=== PATIENT | female | born 1975 | race Caucasian/White ===

== ENCOUNTER 2019-07-07 19:15 | Emergency (ER) | payer OTHER, SELFPAY ==
[2019-07-07 19:15] VITALS: BP 107/73; PULSE 75; RESP 18; TEMP 36.6; O2SAT 96; BMI 25.1
[2019-07-07 19:31] LABS: Apearance,Urine Clear (Clear); Color,Urine Yellow (Yellow)
[2019-07-07 19:32] LABS: Bilirubin,Urine Negative (Negative); Blood, Urine 3+ (Negative); Glucose,Urine (UA) Negative (Negative); Ketones,Urine Negative (Negative); PH,Urine 5.5 (5.0-8.5); Protein,Urine 1+ (Negative); Specific Gravity, Urine 1.015 (1.005-1.030); UTC Leukocyte Esterase,Urine 2+ (Negative); UTC Nitrate,Urine Negative (Negative); Urobilinogen,Urine 0.2 EU/dl (0.2)
--- NOTE | 2019-07-07 19:37 | HMH.EDUTC ---
[facility] [place] Disposition Clinical Impression: UTI (urinary tract infection) Qualifiers: Urinary tract infection type: site unspecified Hematuria presence: with hematuria Qualified Code(s): N39.0 - Urinary tract infection, site not specified Disposition: Home, Self-Care Condition on Discharge: Good Instructions: Trimethoprim/Sulfamethoxazole (Alternative Therapy), Urinary Tract Infection, DI for Urinary Tract Infection (UTI), Phenazopyridine Additional Instructions: *Increase fluids. Water not Soda or Tea *Start antibiotic immediately and be sure to take as ordered for the FULL length of time although you should start to see improvement over the next 48 hours *Pyridium as needed Remember this medication will turn your urine [place]. This is normal but it will stain what ever it gets on *You should not use Pyridium for more than 48 hours. If so , follow up with your primary physician to review urine culture and ensure that antibiotic is adequate for infection *Be SURE to follow up anytime for new or worsening symptoms with your family doctor. AND in 48 hours for urine culture results with your family doctor, if you do not have a doctor then you may call back to the [facility] for urine culture results and further treatment. We do recommend that you choose and establish care with a Primary Care Physician. AND follow up with them in 10-14 days to repeat UA to ensure infection is resolved and blood no longer present *Be sure to let your PCP know that we sent urine cultures from the [facility] so they can follow up to ensure that you area the on the correct antibiotic Call your doctor office and make appointment for 48 hours (2 days from today) to follow up and get the results of your urine culture and further treatment Return if needed Straight to ER if any life threatening symptoms Prescriptions: Sulfamethoxazole/Trimethoprim [Bactrim DS tablet] 1 each PO BID 10 Days #20 tab Transmission Status: Received by [facility] Phenazopyridine HCl [Pyridium 200mg Tablet] 200 pow PO TID #6 tab Transmission Status: Received by [id number] Referrals: Provider,Referral, [Primary Care Provider] - As needed Time of Disposition: 19:53 Medical Decision Making - Tavo Inquiry Pt receiving controlled substance: No Tavo was queried for this patient: No Vital Signs: 07/07/19 19:15 Temperature 97.9 F Temperature Source Oral Pulse Rate [Radial] 75 Respiratory Rate 18 Blood Pressure [Right Arm] 107/73 L Blood Pressure Mean [Right Arm] 84 Blood Pressure Source [Right Arm] Automatic Cuff Blood Pressure Position [Right Arm] Sitting 02 Sat by Pulse Oximetry 96 Oxygen Delivery Method Room Air - Lab Data Lab results reviewed: Yes: I reviewed the patient's lab results. Lab Results 07/07/19 19:18: Urine Color Yellow, Urine Appearance Clear, Urine pH 5.5, Ur Specific [place] 1.015, Urine Protein 1+, Urine Glucose (UA) Negative, Urine Ketones Negative, Urine Blood 3+, Urine Nitrate Negative, Urine Bilirubin Negative, Urine Urobilinogen 0.2, Ur Leukocyte Esterase 2+ A Orders (Tests/Meds): ED MEDICATIONS Discontinued Medications Generic Name Dose Route Start Last Admin Trade Name Freq PRN Reason Stop Dose Admin Ceftriaxone Sodium 1 gm 07/07/19 19:37 07/07/19 19:50 Rocephin 1gm Vial IM 07/07/19 19:38 1 gm ONCE ONE Administration Protocol Lidocaine HCl 0 ml 07/07/19 19:37 07/07/19 19:50 Lidocaine 1% 10ml Mdv IM 07/07/19 19:38 2.1 ml ONCE ONE Administration ORDERS Category Date Time Status Urine Culture Stat Micro 07/07/19 19:30 Ordered [facility] [place] HPI - General Stated complaint: Possible UTI Time Seen by Provider: 07/07/19 19:37 Mode of Arrival: Ambulatory Source of Information: Patient Limitations: No Limitations Description of Symptoms (Recalled from Triage Doc. by RN): UTI or bladder infection HEENT Symptoms (Recalled from RN notes): No Resp Symptoms (Recalled from RN notes): No Skin Sympt
[2019-07-07 20:00] VITALS: BP 107/73; PULSE 75; RESP 18; TEMP 36.6; O2SAT 96
== END 2019-07-07 20:01 | disposition home or self-care (01) ==
PROVIDERS: Emergency Provider Nurse Practitioner
DX: N30.00 Acute cystitis without hematuria (principal); F17.210 Nicotine dependence, cigarettes, uncomplicated
CPT/HCPCS: 81003; 87086; 87088; 87186; 96372; 99202

== ENCOUNTER 2020-07-06 16:39 | Emergency (ER) | payer OTHER, SELFPAY ==
[2020-07-06 16:40] VITALS: BP 125/78; PULSE 72; RESP 18; TEMP 37.1; O2SAT 98; BMI 24.1
--- NOTE | 2020-07-06 16:56 | HMH.EDGENADL ---
ED Disposition Clinical Impression: Abdominal pain Qualifiers: Abdominal location: right lower quadrant Qualified Code(s): R10.31 - Right lower quadrant pain Ovarian cyst Qualifiers: Laterality: left Qualified Code(s): N83.202 - Unspecified ovarian cyst, left side Disposition: Home, Self-Care Condition on Discharge: Good Instructions: DI for Acute Abdominal Pain Referrals: Provider,Referral, MD [Primary Care Provider] - 3 days Time of Disposition: 19:13 - Critical Care Critical Care Time: No Attestation: On , the high probability of a clinically significant, sudden or life threatening deterioration of the following system(s) required my full and direct attention, intervention and personal management. The time I documented below is in addition to time spent performing reported procedures but includes the following listed in this critical care notation. Medical Decision Making - Medical Records Medical records reviewed: Yes: I reviewed the patient's medical records. - Tavo Inquiry Pt receiving controlled substance: No Vital Signs: 07/06/20 16:40 Temperature 98.8 F Temperature Source Oral Pulse Rate [Right] 72 Respiratory Rate 18 Blood Pressure [Right Arm] 125/78 Blood Pressure Mean [Right Arm] 93 02 Sat by Pulse Oximetry 98 Oxygen Delivery Method Room Air - Lab Data Lab results reviewed: Yes: I reviewed the patient's lab results. Lab Results 07/06/20 17:19: WBC 13.1 H, RBC 4.76, Hgb 14.3, Hct 44.1, MCV 92.6, MCH 30.0, MCHC 32.4, RDW 13.5, Plt Count 438 H, MPV 7.0 L, Neut % (Auto) 46.8, Lymph % (Auto) 44.1, Pratt % (Auto) 6.4, Eos % (Auto) 1.6, Baso % (Auto) 1.1, Neut # (Auto) 6.1, Lymph # (Auto) 5.8 H, Pratt # (Auto) 0.8, Eos # (Auto) 0.2, Baso # (Auto) 0.1 07/06/20 17:19: Sodium 136, Potassium 4.3, Chloride 102, Carbon Dioxide 25, Anion Gap 13.3, BUN 16, Creatinine 0.50 L, Estimated Creat Clear 133, Estimated GFR 135, Est GFR ( Amer) 163, Glucose 97, Calcium 9.7, Total Bilirubin 0.3, AST 48 H, ALT 18, Alkaline Phosphatase 100, Total Protein 7.9, Albumin 4.9, Globulin 3.0, Albumin/Globulin Ratio 1.6, Lipase 95 07/06/20 18:05: Urine Color Yellow, Urine Appearance Clear, Urine pH 5.5, Ur Specific [place] >= 1.030, Urine Protein Negative, Urine Glucose (UA) Negative, Urine Ketones Negative, Urine Blood Negative, Urine Nitrate Negative, Urine Bilirubin Negative, Urine Urobilinogen 0.2, Ur Leukocyte Esterase Negative, Urine RBC 5-10, Urine WBC 10-20, Ur Squamous Epith Cells 10-20, Urine Bacteria 1+, Urine Mucus 2+ 07/06/20 18:05: Urine HCG, Qual Negative Result diagrams: 07/06/20 17:19 07/06/20 17:19 Orders (Tests/Meds): ED MEDICATIONS Discontinued Medications Generic Name Dose Route Start Last Admin Trade Name Freq PRN Reason Stop Dose Admin Iopamidol 75 ml 07/06/20 18:42 07/06/20 18:43 Iopamidol-370 (76%);100ml Bottle IV 07/06/20 18:43 75 ml ONCE ONE Administration Ketorolac Tromethamine 15 mg 07/06/20 18:44 07/06/20 18:50 Ketorolac 30mg/Ml Vial IV 07/06/20 18:45 15 mg ONCE ONE Administration Sodium Chloride 10 ml 07/06/20 18:42 07/06/20 18:43 Sodium Chloride 0.9% 10ml Syr (Rad Only) IV 07/06/20 18:43 10 ml ONCE ONE Administration ORDERS Category Date Time Status Urine Culture Stat Micro 07/06/20 18:05 Received - CT Data CT Scan: Abdomen, Pelvis Time Received: 19:[address] Reviewed: Yes: I have viewed the radiologist's interpretation Preliminary Findings: Abnormal Findings Narrative: Left ovarian cyst Medical Decision Narrative: 44yo F evaluated for right lower quadrant pain. Differential diagnosis includes but not limited to: Acute appendicitis, gallbladder disease, constipation, irritable bowel, bowel obstruction, volvulus, intussusception, kidney stone, ovarian pathology, ectopic , aortic injury, SMA syndrome. Patient is in no acute distress as long she sitting still. Patient has significant pain with any movement. Labs and
--- NOTE | 2020-07-06 17:30 | CT_ITS ---
PROCEDURE INFORMATION: Exam: CT Abdomen And Pelvis With Contrast Exam date and time: 07/06/20 05:30 PM Age: 44 years old Clinical indication: Abdominal pain; Localized; Right lower quadrant (rlq); Patient HX: Rlq pain 2 days ago TECHNIQUE: Imaging protocol: Computed tomography of the abdomen and pelvis with contrast. Radiation optimization: All CT scans at this facility use at least one of these dose optimization techniques: automated exposure control; mA and/or kV adjustment per patient size (includes targeted exams where dose is matched to clinical indication); or iterative reconstruction. Contrast material: ISOVUE; Contrast volume: 75 ml; Contrast route: IV; COMPARISON: ABDPELW CT abdomen pelvis w con 01/23/18 11:35 PM FINDINGS: Tubes, catheters and devices: None noted. Lungs: Lung bases appear clear. Heart: No significant coronary calcifications. No cardiomegaly. No significant pericardial effusion. Liver: Normal. No mass. Gallbladder and bile ducts: Normal. No calcified stones. No ductal dilation. Pancreas: Normal. No ductal dilation. Spleen: Normal. No splenomegaly. Adrenal glands: Normal. No mass. Kidneys and ureters: Normal. No hydronephrosis. Stomach and bowel: Unremarkable. No obstruction. No mucosal thickening. Appendix: Appendix is well visualized. No evidence of appendicitis. Intraperitoneal space: Unremarkable. No free air. No significant fluid collection. Retroperitoneal space: No significant retroperitoneal inflammatory changes are noted. Vasculature: Unremarkable. No abdominal aortic aneurysm. Lymph nodes: Unremarkable. No enlarged lymph nodes. Urinary bladder: Unremarkable as visualized. Reproductive: Left ovarian cyst 3.1 x 2.7 cm. Bones/joints: Schmorl's node L5. No acute fracture. Soft tissues: Unremarkable. IMPRESSION: 1. Left ovarian cyst 3.[address] evidence of appendicitis.
[2020-07-06 17:31] LABS: Basophils # 0.1 K/mm3 (0-0.2); Basophils % 1.1 % (0.1-2.0); Eosinophils # 0.2 K/mm3 (0.0-0.4); Eosinophils % 1.6 % (0.1-12.0); Hematocrit 44.1 % (37.0-47.0); Hemoglobin 14.3 g/dL (12.2-16.2); Lymphocytes # 5.8 K/mm3 (0.7-4.5); Lymphocytes % 44.1 % (10-50); Mean Corpuscular HGB Conc 32.4 g/dL (31.8-35.4); Mean Corpuscular Volume 92.6 fl (81-99); Monocytes # 0.8 K/mm3 (0.1-1.0); Monocytes % 6.4 % (1.7-9.3); Neutrophils # 6.1 K/mm3 (1.8-7.8); Neutrophils % 46.8 % (37.0-80.0); Platelet Count 438 K/mm3 (142-424); Red Blood Count 4.76 M/mm3 (4.20-5.40); Red Cell Distribution Width 13.5 % (11.5-17.5); White Blood Count 13.1 K/mm3 (4.8-10.8)
[2020-07-06 17:45] LABS: Chloride 102 mmol/L (98-107); Sodium 136 mmol/L (136-145)
[2020-07-06 17:46] LABS: Potassium 4.3 mmoL/L (3.5-5.1)
[2020-07-06 17:48] LABS: Alanine Aminotransferase 18 U/L (12-78); Alkaline Phosphatase 100 U/L (38-126); Anion Gap 13.3 mEq/L (5-15); Aspartate Amino Transferase 48 U/L (14-36); Bilirubin,Total 0.3 mg/dl (0.2-1.3); Blood Urea Nitrogen 16 mg/dl (7-17); Carbon Dioxide 25 mmol/L (22.0-30.0); Creatinine Clearance Estimated 133 mL/min (50-200); Estimated Glomerular Filt Rate 135 ml/min (>60); GFR (African American) 163 ML/MIN (>60)
[2020-07-06 17:49] LABS: Albumin Level 4.9 g/dl (3.5-5.0); Albumin/Globulin Ratio 1.6 (1.1-1.8); Calcium 9.7 mg/dl (8.4-10.2); Glucose 97 mg/dl (74-100); Lipase 95 U/L (23-300); Total Protein,Serum 7.9 g/dl (6.3-8.2)
[2020-07-06 18:10] LABS: Microscopic, Urine URINE MICROSCOPIC (MICROSCOPIC)
[2020-07-06 18:12] LABS: Appearance,Urine CLEAR (Clear); Bilirubin,Urine Negative (Negative); Blood, Urine Negative (Negative); Color,Urine YELLOW (Yellow); Glucose,Urine (UA) Negative (Negative); Ketones,Urine Negative (Negative); Leukocyte Esterase,Urine Negative (Negative); Nitrate,Urine Negative (Negative); PH,Urine 5.5 (5.0-8.5); Protein,Urine Negative (Negative); Specific Gravity, Urine >= 1.030 (1.005-1.030); Urobilinogen,Urine 0.2 EU/dl (0.2)
[2020-07-06 18:14] LABS: Urine Pregnancy, HCG Qual. Negative (Negative)
[2020-07-06 18:24] LABS: Bacteria,Urine 1+ /lpf; Mucus,Urine 2+ /lpf
[2020-07-06 18:53] VITALS: BP 111/81; PULSE 63; O2SAT 100
[2020-07-06 19:26] VITALS: BP 108/73; PULSE 68; RESP 16; TEMP 36.6; O2SAT 99
== END 2020-07-06 19:27 | disposition home or self-care (01) ==
PROVIDERS: Emergency Provider Family Medicine
DX: N83.202 Unspecified ovarian cyst, left side (principal); F17.210 Nicotine dependence, cigarettes, uncomplicated
CPT/HCPCS: 74177; 80053; 81001; 81025; 83690; 85025; 87086; 87088; 87186; 96374; 99283; Q9967

== ENCOUNTER 2020-09-16 16:36 | Emergency (ER) | payer OTHER, SELFPAY ==
[2020-09-16 16:37] VITALS: RESP 16; O2SAT 100; BMI 24.5
--- NOTE | 2020-09-16 17:15 | HMH.EDUTC ---
[facility] [place] Clinical Impression: Sinusitis Disposition: Home, Self-Care Condition on Discharge: Good Instructions: Sinusitis, DI for Sinusitis Additional Instructions: *Monitor Temp, Over the counter Motrin or Tylenol as directed/as needed Tylenol every 4 hours and Motrin every 6 hours (as long as your family doctor has told you that you can take it) for fever or pain. and straight to ER if unable to lower temp less than 101.0 after medication given *Warm salt water gargles may help to soothe the throat *Throat Lozenges *Warm fluids like tea with honey may help to soothe the throat *Sleep elevated *Humidifier/Vaporizer Take antibiotics as prescribed Follow up IMMEDIATELY for new or worsening symptoms or no Noticeable improvement over the next 48-72 hours. 911 for difficulty breathing or swallowing Prescriptions: methylPREDNISolone [Medrol 4mg tab] 4 mg PO DIRECTED #21 tab Transmission Status: Pending to [facility] Azithromycin [Z-Jamey 250mg Tab] 250 mg PO DIRECTED #6 tab Transmission Status: Pending to [facility] Referrals: Isael Lipscomb MD [Primary Care Provider] - As needed Time of Disposition: 17:28 Medical Decision Making - Tavo Inquiry Pt receiving controlled substance: No Tavo was queried for this patient: No Vital Signs: 09/16/20 16:37 Respiratory Rate 16 02 Sat by Pulse Oximetry 100 Oxygen Delivery Method Room Air [facility] [place] - General Stated complaint: sinus drainage, pressure, sore throat Time Seen by Provider: 09/16/20 17:15 Mode of Arrival: Ambulatory Source of Information: Patient Limitations: No Limitations Description of Symptoms (Recalled from Triage Doc. by RN): pt c/o sinus pressure and left ear pain HEENT Symptoms (Recalled from RN notes): Yes (sinus pressure) Resp Symptoms (Recalled from RN notes): No Skin Symptoms (Recalled from RN notes): No MS Symptoms (Recalled from RN notes): No Functional Status (Recalled from RN notes): na - History of Present Illness Provider Complaint: Patient states that she has been having sinus pain and pressure that has continued to get worse and pressure like feeling behind her eyes States pressure is worse when she bends over States that she is also having scratchy throat and pain in her left ear - Related Data Previous Rx's Medication Instructions Recorded Amoxicillin/Potassium Clav 1 tab PO Q12H 7 Days #14 tab 11/19/18 [Augmentin 875-125 Tablet] Fluticasone Propionate [Flonase 2 spr NS DAILY #1 bottle 11/19/18 50mcg nasal spray 16gm] predniSONE [Prednisone 5mg Tab 5 mg PO UD DOSE PK 6 Days #21 pack 11/19/18 Dose-Pack] Phenazopyridine HCl [Pyridium 200 pow PO TID #6 tab 07/07/19 200mg Tablet] Sulfamethoxazole/Trimethoprim 1 each PO BID 10 Days #20 tab 07/07/19 [Bactrim DS tablet] Azithromycin [Z-Jamey 250mg Tab] 250 mg PO DIRECTED #6 tab 09/16/20 methylPREDNISolone [Medrol 4mg 4 mg PO DIRECTED #21 tab 09/16/20 tab] Allergies Allergy/AdvReac Type Severity Reaction Status Date / Time No Known Allergies Allergy Verified 03/14/18 18:01 - Worker's Comp Is this a Worker's Comp case?: No [facility] History - Hepatitis A Screen Drug use history?: No High risk sexual behaviors?: No History of sexually transmitted infection?: No Currently employed?: No Childcare worker?: No Do you have indoor plumbing?: Yes Do you have electricity?: Yes Attestation statement:: This patient has been screened for Hepatitis A risk factors. I have reviewed the patient's past medical history: Yes Medical History: Denies:: Cancer, Diabetes Mellitus Type 1, Diabetes Mellitus Type 2, Hypertension, MRSA Other Surgeries: Yes: Tubal Ligation Amputation: No Fractures: No - Social History Smoking Status: Current every day smoker Tobacco Type: cigarettes # Packs/Day (cigarettes): 1 Alcohol Intake: never Alcohol Intake Frequency:: 0-2 drinks per day Occupational Status: other
[2020-09-16 17:27] VITALS: BP 0/0; PULSE 74; RESP 16; TEMP 36.8; O2SAT 98
== END 2020-09-16 17:31 | disposition home or self-care (01) ==
PROVIDERS: Emergency Provider Nurse Practitioner; PCP Emergency Medicine
DX: J01.90 Acute sinusitis, unspecified (principal); F17.210 Nicotine dependence, cigarettes, uncomplicated
CPT/HCPCS: 99202; G0463

== ENCOUNTER 2020-10-07 12:53 | Emergency (ER) | payer OTHER, SELFPAY ==
[2020-10-07 14:35] VITALS: BP 107/72; PULSE 68; RESP 19; TEMP 36.7; O2SAT 98; BMI 24.7
--- NOTE | 2020-10-07 14:43 | HMH.EDUTC ---
[facility] [place] Disposition Clinical Impression: Exposure to COVID-19 virus Disposition: Home, Self-Care Condition on Discharge: Good Instructions: Diarrhea, DI for COVID-19 (Suspected or Confirmed ), Coronavirus Disease 2019, Preventing the Spread of Coronavirus Discharge Instructions Additional Instructions: *Monitor Temp, Over the counter Motrin or Tylenol as directed/as needed Tylenol every 4 hours and Motrin every 6 hours (as long as your family doctor has told you that you can take it) for fever or pain. and straight to ER if unable to lower temp less than 101.0 after medication given *Warm salt water gargles may help to soothe the throat *Throat Lozenges *Warm fluids like tea with honey may help to soothe the throat *Sleep elevated *Humidifier/Vaporizer Follow up IMMEDIATELY for new or worsening symptoms or no Noticeable improvement over the next 48-72 hours. 911 for difficulty breathing or swallowing You were tested for today for COVID19 your test result should be back in the next 24-48 hours, you may call to the [facility] to see if your test results are back in the next 48 hours [phone] [facility] hours are 9am-9pm You was given a handout with instructions for Self Quarantine and Self isolation for while you wait on test results and what to do if they are positive If you are positive the Health Dept will be contacting you also Make sure to take your Vitamins Vit. C Vit D and Zinc if you can take them Referrals: Aditi Ferrara PA [Primary Care Provider] - As needed Time of Disposition: 14:47 Medical Decision Making - Tavo Inquiry Pt receiving controlled substance: No Tavo was queried for this patient: No Vital Signs: 10/07/20 14:35 Temperature 98.0 F Temperature Source Oral Pulse Rate [Left Brachial] 68 Respiratory Rate 19 Blood Pressure [Left Arm] 107/72 L Blood Pressure Mean [Left Arm] 83 Blood Pressure Source [Left Arm] Automatic Cuff Blood Pressure Position [Left Arm] Sitting 02 Sat by Pulse Oximetry 98 Oxygen Delivery Method Room Air Orders (Tests/Meds): ORDERS Category Date Time Status Covid-19 Nasal PCR ([facility]) Routine Lab 10/07/20 14:20 Received [facility] [place] HPI - General Stated complaint: covid expsoure Time Seen by Provider: 10/07/20 14:43 Mode of Arrival: Ambulatory Source of Information: Patient Limitations: No Limitations Description of Symptoms (Recalled from Triage Doc. by RN): PATIENT C/O COUGH, SORE THROAT, AND DIARRHEA X 2 DAYS. RECENTLY EXPOSED TO COVID HEENT Symptoms (Recalled from RN notes): Yes Resp Symptoms (Recalled from RN notes): No Skin Symptoms (Recalled from RN notes): No MS Symptoms (Recalled from RN notes): No Functional Status (Recalled from RN notes): WNL - History of Present Illness Provider Complaint: Patient state that she was recently around her grand daughter that has since tested positive for COVID States that she has been having scratchy throat and had a couple episodes of diarrhea States that she wanted to get tested because boscheyanne is having similar symptoms - Related Data Previous Rx's Medication Instructions Recorded Amoxicillin/Potassium Clav 1 tab PO Q12H 7 Days #14 tab 11/19/18 [Augmentin 875-125 Tablet] Fluticasone Propionate [Flonase 2 spr NS DAILY #1 bottle 11/19/18 50mcg nasal spray 16gm] predniSONE [Prednisone 5mg Tab 5 mg PO UD DOSE PK 6 Days #21 pack 11/19/18 Dose-Pack] Phenazopyridine HCl [Pyridium 200 pow PO TID #6 tab 07/07/19 200mg Tablet] Sulfamethoxazole/Trimethoprim 1 each PO BID 10 Days #20 tab 07/07/19 [Bactrim DS tablet] Azithromycin [Z-Jamey 250mg Tab] 250 mg PO DIRECTED #6 tab 09/16/20 methylPREDNISolone [Medrol 4mg 4 mg PO DIRECTED #21 tab 09/16/20 tab] Allergies Allergy/AdvReac Type Severity Reaction Status Date / Time No Known Allergies Allergy Verified 03/14/18 18:01 - Worker's Comp Is this a Worker's Comp case?: No [facility] History - Hepatitis A Screen Drug use history?: No High
[2020-10-07 14:55] VITALS: BP 107/72; PULSE 68; RESP 19; TEMP 36.7; O2SAT 98
== END 2020-10-07 14:59 | disposition home or self-care (01) ==
PROVIDERS: Emergency Provider Nurse Practitioner; PCP Physician Assistant
DX: Z20.822 Contact with and (suspected) exposure to COVID-19 (principal); R05 Cough; R19.7 Diarrhea, unspecified; F17.210 Nicotine dependence, cigarettes, uncomplicated
CPT/HCPCS: 99202; G0463; U0003

== ENCOUNTER 2021-02-11 09:38 | Emergency (ER) | payer OTHER, SELFPAY ==
[2021-02-11 11:02] VITALS: BP 105/45; PULSE 82; RESP 14; TEMP 36.9; O2SAT 96; BMI 24.7
--- NOTE | 2021-02-11 11:46 | HMH.EDUTC ---
[facility] [place] Disposition Clinical Impression: Sinusitis Qualifiers: Sinusitis location: unspecified location Chronicity: acute Recurrence: non-recurrent Qualified Code(s): J01.90 - Acute sinusitis, unspecified Disposition: Home, Self-Care Condition on Discharge: Good Instructions: DI for Sinusitis Additional Instructions: Drink plenty of fluids. Take tylenol or ibuprofen for pain or fever. Take the medications as directed. Follow up with your regular doctor. GO TO THE ER FOR ANY WORSENING SYMPTOMS Prescriptions: methylPREDNISolone [Medrol] 4 mg PO DIRECTED 6 Days #21 packet Transmission Status: Received by [facility] guaiFENesin [Mucinex 600mg tablet] 1 - 2 tab PO BIDP PRN #30 tab PRN Reason: Congestion Transmission Status: Received by [facility] Azithromycin [Z-Jamey 250mg Tab*] 250 mg PO UD DOSE PK #6 tab Transmission Status: Received by [facility] Referrals: Isael Lipscomb MD [Primary Care Provider] - Forms: Work/School Release Time of Disposition: 12:02 Medical Decision Making - Medical Records Medical records reviewed: No: I reviewed the patient's medical records. - Tavo Inquiry Pt receiving controlled substance: No Vital Signs: 02/11/21 11:02 02/11/21 12:20 Temperature 98.4 F 98.4 F Temperature Source Oral Pulse Rate 82 Pulse Rate [Left] 82 Respiratory Rate 14 14 Blood Pressure 105/45 L Blood Pressure [Right Arm] 105/45 L Blood Pressure Mean [Right Arm] 65 02 Sat by Pulse Oximetry 96 [facility] [place] HPI - General Stated complaint: sinus issues Time Seen by Provider: 02/11/21 11:46 Mode of Arrival: Ambulatory Source of Information: Patient Limitations: No Limitations Description of Symptoms (Recalled from Triage Doc. by RN): pt c/o sinus pressure and R ear pain. HEENT Symptoms (Recalled from RN notes): Yes (sinus pressure and R ear ache) Resp Symptoms (Recalled from RN notes): No Skin Symptoms (Recalled from RN notes): No MS Symptoms (Recalled from RN notes): No Functional Status (Recalled from RN notes): wnl - History of Present Illness Provider Complaint: She c/o sinus congestion for the past 4 days. She refuses a covid test. - Related Data Previous Rx's Medication Instructions Recorded Amoxicillin/Potassium Clav 1 tab PO Q12H 7 Days #14 tab 11/19/18 [Augmentin 875-125 Tablet] Fluticasone Propionate [Flonase 2 spr NS DAILY #1 bottle 11/19/18 50mcg nasal spray 16gm] predniSONE [Prednisone 5mg Tab 5 mg PO UD DOSE PK 6 Days #21 pack 11/19/18 Dose-Pack] Phenazopyridine HCl [Pyridium 200 pow PO TID #6 tab 07/07/19 200mg Tablet] Sulfamethoxazole/Trimethoprim 1 each PO BID 10 Days #20 tab 07/07/19 [Bactrim DS tablet] Azithromycin [Z-Jamey 250mg Tab] 250 mg PO DIRECTED #6 tab 09/16/20 methylPREDNISolone [Medrol 4mg 4 mg PO DIRECTED #21 tab 09/16/20 tab] Azithromycin [Z-Jamey 250mg Tab*] 250 mg PO UD DOSE PK #6 tab 02/11/21 guaiFENesin [Mucinex 600mg tablet] 1 - 2 tab PO BIDP PRN #30 tab 02/11/21 methylPREDNISolone [Medrol] 4 mg PO DIRECTED 6 Days #21 02/11/21 packet Allergies Allergy/AdvReac Type Severity Reaction Status Date / Time No Known Allergies Allergy Verified 03/14/18 18:01 - Worker's Comp Is this a Worker's Comp case?: No [facility] History - Hepatitis A Screen Drug use history?: No High risk sexual behaviors?: No History of sexually transmitted infection?: No Currently employed?: No Childcare worker?: No Do you have indoor plumbing?: Yes Do you have electricity?: Yes Attestation statement:: This patient has been screened for Hepatitis A risk factors. I have reviewed the patient's past medical history: Yes Medical History: Denies:: Cancer, Diabetes Mellitus Type 1, Diabetes Mellitus Type 2, Hypertension, MRSA Other Surgeries: Yes: Tubal Ligation Amputation: No Fractures: No - Social History Smoking Status: Current every day smoker Tobacco Type: cigarettes # Packs/Day (ci
[2021-02-11 12:20] VITALS: BP 105/45; PULSE 82; RESP 14; TEMP 36.9
== END 2021-02-11 12:21 | disposition home or self-care (01) ==
PROVIDERS: Emergency Provider Nurse Practitioner Family; PCP Emergency Medicine
DX: J01.90 Acute sinusitis, unspecified (principal); F17.210 Nicotine dependence, cigarettes, uncomplicated
CPT/HCPCS: 99202; G0463

== ENCOUNTER 2021-08-31 17:07 | Emergency (ER) | payer OTHER, SELFPAY ==
--- NOTE | 2021-08-31 17:20 | XR_ITS ---
PROCEDURE INFORMATION: Exam: XR Right Hand Exam date and time: 08/31/2021 5:21 PM Age: 46 years old Clinical indication: Injury or trauma; Other: Smashed at work; Work related; Crushing and laceration and swelling (edema); Wrist and hand; Right; Hand and wrist; Injury date: 08/31/2021; Injury details: PT states her hand was smashed by equipment today at work TECHNIQUE: Imaging protocol: Radiologic exam of the Right hand. Views: 3 or more views. COMPARISON: CR Wrist R 08/31/2021 5:21 PM FINDINGS: Bones/joints: No evidence of acute displaced cortical disruption or dislocation. Regional bone density and trabecular pattern have a satisfactory appearance. Minimal degenerative changes. Soft tissues: Normal. IMPRESSION: Minimal degenerative changes.
--- NOTE | 2021-08-31 17:20 | XR_ITS ---
PROCEDURE INFORMATION: Exam: XR Right Wrist Exam date and time: 08/31/2021 5:21 PM Age: 46 years old Clinical indication: Injury or trauma; Other: Smashed at work; Work related; Crushing and laceration and swelling (edema); Wrist and hand; Right; Hand and wrist; Injury date: 08/31/2021; Injury details: PT says she smashed her hand/ wrist with equipment at work today TECHNIQUE: Imaging protocol: Radiologic exam of the Right wrist. Views: 3 or more views. COMPARISON: No relevant prior studies available. FINDINGS: Bones/joints: No evidence of acute displaced cortical disruption or dislocation. Regional bone density and trabecular pattern have a satisfactory appearance. Mild osteophytosis and eburnation of the radioulnar articulating surfaces. Soft tissues: No radiopaque foreign object or localized soft tissue swelling. IMPRESSION: 1. No acute fracture is identified. 2. Mild degenerative changes.
[2021-08-31 17:42] VITALS: BP 108/72; PULSE 61; RESP 17; TEMP 36.6; O2SAT 100; BMI 23.9
--- NOTE | 2021-08-31 17:51 | HMH.EDUTC ---
[facility] [place] Clinical [place]ression: Need for Tdap vaccination Crushing injury of right hand Qualifiers: Encounter type: initial encounter Qualified Code(s): S67.21XA - Crushing injury of right hand, initial encounter Laceration of right hand Qualifiers: Encounter type: initial encounter Foreign body presence: without foreign body Qualified Code(s): S61.411A - Laceration without foreign body of right hand, initial encounter Disposition: Home, Self-Care Condition on Discharge: Good Instructions: How to Care for a Laceration After Repair, DI for Laceration Repair -- Simple, DI for Crush Injury, Tetanus, Diphtheria, Pertussis (Tdap) Vaccine Additional Instructions: Keep the wound clean and dry. Keep a dressing on it if you are going to be getting it dirty. Watch the for signs of infection, such as redness, swelling, drainage, fever. etc. Take tylenol or ibuprofen for pain. I sent some prescription strength ibuprofen for you to take. Follow up with your regular doctor. Return in 10 days to have the sutures removed. GO TO THE ER FOR ANY WORSENING SYMPTOMS OR CONCERNS. Rest the extremity, apply ice for 15 minutes as tolerated three or four times per day, Wear the nasreen wrap for compression, Elevate the extremity as tolerated while you are resting. Take ibuprofen for pain. I sent in a prescription to your pharmacy. Follow up with Dr. Marquez (orthopedics). I put in a referral but you need to call his office and schedule an appointment. Crushing type injuries need to be follow up on by an orthopedic doctor. Follow up with your regular doctor. GO TO THE ER FOR ANY WORSENING SYMPTOMS Prescriptions: Ibuprofen [Ibuprofen 600mg Tablet] 600 mg PO Q6HP PRN #30 tab PRN Reason: Mild Pain Transmission Status: Received by [facility] cephALEXin [cephALEXin 500mg capsule] 500 mg PO Q6H 10 Days #40 cap Transmission Status: Received by [facility] Referrals: Isael Lipscomb MD [Primary Care Provider] - Forms: Work/School Release Time of Disposition: 19:14 Medical Decision Making - Medical Records Medical records reviewed: No: I reviewed the patient's medical records. - Tavo Inquiry Pt receiving controlled substance: No Vital Signs: 08/31/21 17:42 08/31/21 19:16 Temperature 97.9 F 97.9 F Temperature Source Oral Pulse Rate 61 Pulse Rate [Left] 61 Respiratory Rate 17 17 Blood Pressure 108/72 L Blood Pressure [Right Arm] 108/72 L Blood Pressure Mean [Right Arm] 84 02 Sat by Pulse Oximetry 100 Orders (Tests/Meds): ED MEDICATIONS Discontinued Medications Generic Name Dose Route Start Last Admin Trade Name Freq PRN Reason Stop Dose Admin Tetanus/Reduced Diphtheria/Acell Pertussis 0.5 ml 08/31/21 18:13 08/31/21 18:32 Tet/Diphth/Pert-Adult 0.5ml Syringe IM 08/31/21 18:14 0.5 ml .ONCE ONE Administration - Radiology Data #1 Image(s): Hand Image Reviewed: Yes I reviewed the patient's radiology image, Yes I have reviewed radiologist's interpretation Preliminary Findings: Normal/NAD, No Fracture Seen PROCEDURE INFORMATION: Exam: XR Right Hand Exam date and time: 08/31/2021 5:21 PM Age: 46 years old Clinical indication: Injury or trauma; Other: Smashed at work; Work related; Crushing and laceration and swelling (edema); Wrist and hand; Right; Hand and wrist; Injury date: 08/31/2021; Injury details: PT states her hand was smashed by equipment today at work TECHNIQUE: Imaging protocol: Radiologic exam of the Right hand. Views: 3 or more views. COMPARISON: CR Wrist R 08/31/2021 5:21 PM FINDINGS: Bones/joints: No evidence of acute displaced cortical disruption or dislocation. Regional bone density and trabecular pattern have a satisfactory appearance. Minimal degenerative changes. Soft tissues: Normal. IMPRESSION: Minimal degenerative changes.
[2021-08-31 19:16] VITALS: BP 108/72; PULSE 61; RESP 17; TEMP 36.6
== END 2021-08-31 19:30 | disposition home or self-care (01) ==
PROVIDERS: Emergency Provider Nurse Practitioner Family; PCP Emergency Medicine
DX: S67.21XA Crushing injury of right hand, initial encounter (principal); S61.411A Laceration without foreign body of right hand, initial encounter; Z23 Encounter for immunization
CPT/HCPCS: 12001; 73110; 73130; 90471; 90715; 99213; G0463

== ENCOUNTER → 2021-09-06 14:17 | Outpatient (CLI) | payer OTHER, SELFPAY ==
--- NOTE | 2021-09-06 14:23 | XR_ITS ---
FINAL REPORT CLINICAL HISTORY: Injured Rt hand x 4 days ago, F/U COMPARISON: 08/31/2021 FINDINGS: 3 views of the right hand were obtained. There is no acute fracture or dislocation. The joint spaces are intact. There is no soft tissue abnormality. IMPRESSION: No acute process. Reviewed, Interpreted and Dictated by Saurav Chang MD Transcribed by Miguel Ramirez Authenticated and [facility]
== END ==
PROVIDERS: PCP Emergency Medicine; Visit Provider Orthopaedic Surgery
DX: S69.91XA Unspecified injury of right wrist, hand and finger(s), initial encounter (principal)
CPT/HCPCS: 73130

== ENCOUNTER → 2021-09-28 08:39 | Outpatient (CLI) | payer OTHER, SELFPAY ==
--- NOTE | 2021-09-28 08:45 | XR_ITS ---
FINAL REPORT CLINICAL HISTORY: hand pain COMPARISON: 09/06/2021 FINDINGS: 3 views of the right hand were obtained. There is no acute fracture or dislocation. The joint spaces are intact. There is no soft tissue abnormality. IMPRESSION: No acute process. Reviewed, Interpreted and Dictated by Kelvin Falcon III, MD Transcribed by Miguel Ramirez Authenticated and [facility]
== END ==
PROVIDERS: PCP Emergency Medicine; Visit Provider Orthopaedic Surgery
DX: M79.641 Pain in right hand (principal)
CPT/HCPCS: 73130

== ENCOUNTER 2022-04-16 20:02 | Emergency (ER) | payer OTHER, SELFPAY ==
[2022-04-16 20:11] VITALS: BP 112/65; PULSE 75; RESP 18; TEMP 37.1; O2SAT 98; BMI 25.1
--- NOTE | 2022-04-16 20:14 | XR_ITS ---
PROCEDURE INFORMATION: Exam: XR Chest Exam date and time: 04/16/2022 8:54 PM Age: 46 years old Clinical indication: Cough TECHNIQUE: Imaging protocol: Radiologic exam of the chest. Views: 2 views. COMPARISON: CT ABDOMEN PELVIS W CON 07/06/2020 6:33 PM FINDINGS: Lungs: Unremarkable. No consolidation. Pleural spaces: Unremarkable. No pleural effusion. No pneumothorax. Heart/Mediastinum: Unremarkable. No cardiomegaly. Bones/joints: Unremarkable. IMPRESSION: No acute findings.
[2022-04-16 20:22] LABS: Coronavirus 19, PCR Not Detected (NotDetected); Influenza A, PCR Not Detected (NotDetected); Influenza B, PCR Not Detected (NotDetected)
--- NOTE | 2022-04-16 21:02 | PC.NURSE ---
Pt gone XRay at this time
--- NOTE | 2022-04-16 21:53 | HMH.EDURI ---
Discharge Plan Disposition Patient Disposition: Home, Self-Care Prescriptions Prescriptions: New azithromycin [azithromycin] 250 mg tablet 250 mg PO DIRECTED Qty: 6 0RF Rx Instructions: Take two (2) tablets on day #1, then one (1) tablet day #2 thru #5 prednisone [prednisone] 20 mg tablet 20 mg PO BID Qty: 10 0RF No Action phenazopyridine 200 MG tablet 200 pow PO TID Qty: 6 0RF sulfamethoxazole-trimethoprim 1 EACH tablet 1 each PO BID 10 Days Qty: 20 0RF guaifenesin 600 MG tablet extended release 12hr 1 - 2 tab PO BIDP PRN (Reason: Congestion) Qty: 30 0RF fluticasone propionate 120 SPR/BOT bottle 2 spr intranasal DAILY Qty: 1 0RF Rx Instructions: each nostril daily ibuprofen 600 MG tablet 600 mg PO Q6HP PRN (Reason: Mild Pain) Qty: 30 0RF Referrals Follow up/Referrals: Isael Lipscomb MD [Primary Care Provider] - See instructions Clinical Impressions Clinical Impression: Bronchitis Instructions Patient Instructions: DI for Acute Bronchitis Discharge ED Provider: Ruel (ED)Isael URI/Sore Throat HPI General Chief Complaint: Upper Respiratory Infection Stated Complaint: Bodyache,Congestion,Nauses,lightheaded and dizzy Time Seen by Provider: 04/16/22 21:53 Mode of Arrival: Ambulatory Source of Information: Patient Limitations: No Limitations Description of Symptoms (Recalled from ER Triage Doc. by RN): Pt c/o bodyaches, cough, sneezing and nausea since yesterday. Denies fever. Denies other symptoms History of Present Illness HPI Narrative: sore throat and cough and congestion since yesterday w/o rash Complaint: cough and sore throat Onset (ago): day(s) Duration: intermittent Severity: moderate Able to tolerate fluids by mouth: Yes Associated symptoms: denies other symptoms Related Data Previous Rx's Medication Instructions Recorded fluticasone propionate 50 2 spr intranasal DAILY ##1 11/19/18 mcg/actuation nasal spray,suspension phenazopyridine 200 mg tablet 200 pow PO TID #6 tabs 07/07/19 sulfamethoxazole 800 1 each PO BID 10 days #20 tabs 07/07/19 mg-trimethoprim 160 mg tablet guaifenesin 600 mg tablet, 1 - 2 tab PO BIDP PRN Congestion 02/11/21 extended release 12 hr #30 tabs ibuprofen 600 mg tablet 600 mg PO Q6HP PRN Mild Pain #30 08/31/21 tabs azithromycin 250 mg tablet 250 mg PO DIRECTED #6 tabs 04/16/22 prednisone 20 mg tablet 20 mg PO BID #10 tabs 04/16/22 Allergies Allergy/AdvReac Type Severity Reaction Status Date / Time No Known Allergies Allergy Verified 10/31/21 09:27 [facility] Disclaimer: The information contained in this section may have been updated after the patient was seen, as this information can be updated by other users. Social History Smoking Status: Current every day smoker tobacco type: cigarettes packs per day: 1 second hand exposure: Yes alcohol intake: never current occupational status: other Travel in the last 8 weeks: None housing: house ROS Obtained: Yes All systems reviewed & no additional complaints except as documented Physical Exam General General appearance: alert Head Head exam: atraumatic Eye Eye exam: Present PERRL and EOMI ENT ENT exam: Present normal oropharynx, mucous membranes moist and TM's normal bilaterally Neck Neck exam: Present trachea midline Respiratory Respiratory exam: Absent respiratory distress Cardiovascular Cardiovascular exam: Present regular rate Abdominal Exam Abdominal exam: Present soft Extremities Exam Extremities exam: Present full ROM Neurological Exam Neurological exam: Present alert, oriented X3 and CN II-XII intact Psychiatric Psychiatric exam: Present normal affect Skin Skin exam: Absent rash Lymphatic Lymphatic Findings: no adenopathy Medical Decision Making Medical Records Medical records reviewed: Yes I reviewed the patient's medical records. Tavo Stack
[2022-04-16 22:05] VITALS: BP 110/60; PULSE 72; RESP 18; TEMP 36.6; O2SAT 98
== END 2022-04-16 22:15 | disposition home or self-care (01) ==
PROVIDERS: Emergency Provider Emergency Medicine; PCP Emergency Medicine
DX: J20.9 Acute bronchitis, unspecified (principal); F17.210 Nicotine dependence, cigarettes, uncomplicated; Z20.822 Contact with and (suspected) exposure to COVID-19
CPT/HCPCS: 71046; 96372; 99283; 99284; C9803; J0696; U0003; U0005

== ENCOUNTER 2022-10-16 17:15 | Emergency (ER) | payer OTHER, SELFPAY ==
[2022-10-16 17:30] VITALS: BP 117/59; PULSE 70; RESP 20; TEMP 36.8; O2SAT 97; BMI 26.0
--- NOTE | 2022-10-16 17:33 | EXP.UTC ---
Discharge Plan Disposition Patient Disposition: Home, Self-Care Condition: Good Prescriptions Prescriptions: New prednisone 10 mg tablet 10 mg PO BID 4 Days Qty: 8 0RF amoxicillin [amoxicillin] 875 mg tablet 875 mg PO Q12H Qty: 20 0RF Referrals Follow up/Referrals: Aditi Ferrara PA [Primary Care Provider] - See instructions Activity Restrictions/Add. Instructions Additional Instructions/Restrictions: Drink plenty of fluids. Take tylenol or ibuprofen for pain or fever. Take the medications as directed. Follow up with your regular doctor. GO TO THE ER FOR ANY WORSENING SYMPTOMS Clinical Impressions Clinical Impression: Otitis media Instructions Patient Instructions: Middle Ear Infection Discharge ED Provider: Tera Pedersen [facility] General Stated complaint: R ear pain Time Seen by Provider: 10/16/22 17:33 History of Present Illness Provider Complaint: She states that for the past 3 days she has had ear pain, sore throat, cough, and malaise. Related Data Previous Rx's Medication Instructions Recorded amoxicillin 875 mg tablet 875 mg PO Q12H #20 tabs 10/16/22 prednisone 10 mg tablet 10 mg PO BID 4 days #8 tabs 10/16/22 Allergies Allergy/AdvReac Type Severity Reaction Status Date / Time No Known Allergies Allergy Verified 10/31/21 09:27 [facility] Disclaimer: The information contained in this section may have been updated after the patient was seen, as this information can be updated by other users. Social History Smoking Status: Current every day smoker tobacco type: cigarettes packs per day: 1 second hand exposure: Yes alcohol intake: never current occupational status: other Travel in the last 8 weeks: None housing: house ROS Obtained: Yes All systems reviewed & no additional complaints except as documented Constitutional Constitutional: Denies chills, Reports fever(s) and Reports poor appetite Eyes Eyes: Denies eye discharge ENT Ears, Nose, Mouth, and Throat: Denies ear discharge, Reports otalgia, Denies hearing loss, Denies sinus pain and Reports sore throat Cardiovascular Cardiovascular: Denies chest pain and Denies dyspnea Respiratory Respiratory: Denies chest congestion, Reports cough and Denies dyspnea Gastrointestinal Gastrointestingal: Denies abdominal pain, diarrhea, nausea or vomiting Musculoskeletal Musculoskeletal: Denies arthralgias Integumentary/Breasts Skin/Breast: Denies rash Physical Exam General General appearance: alert and in no apparent distress Head Head exam: atraumatic, normocephalic and normal inspection Eye Eye exam: Present normal appearance; Absent PERRL or EOMI ENT ENT exam: Present mucous membranes moist and normal external ear exam Expanded ENT Exam TM/Canal exam: Bilateral TM: erythema, bulging and effusion Nose exam: Absent sinus tenderness Nasal speculum exam: Bilateral: normal Mouth exam: Present normal external inspection and other; Absent drooling Teeth exam: Present normal inspection Throat exam: Present tonsillar erythema and tonsillomegaly Neck Neck exam: Present normal inspection, full ROM and trachea midline; Absent tenderness, meningismus or lymphadenopathy Chest Chest inspection: Present normal inspection and symmetric chest wall rise; Absent tenderness Respiratory Respiratory exam: Present normal lung sounds bilaterally; Absent respiratory distress, wheezes or stridor Cardiovascular Cardiovascular exam: Present regular rate, normal rhythm and normal heart sounds; Absent tachycardia or irregular rhythm Abdominal Exam Abdominal exam: Present soft and normal bowel sounds; Absent distention, tenderness, guarding, rebound or rigidity Extremities Exam Extremities exam: Present normal inspection and normal capillary refill; Absent tenderness, joint swelling or calf tenderness Back Exam Back exam: Present normal inspection and full ROM; Absent tenderness
[2022-10-16 17:58] VITALS: BP 117/59; PULSE 70; RESP 20; TEMP 36.8; O2SAT 97
== END 2022-10-16 18:07 | disposition home or self-care (01) ==
PROVIDERS: Emergency Provider Nurse Practitioner Family; PCP Physician Assistant
DX: H66.93 Otitis media, unspecified, bilateral (principal); R07.0 Pain in throat; R53.81 Other malaise; F17.210 Nicotine dependence, cigarettes, uncomplicated
CPT/HCPCS: 99212; 99214; G0463

== ENCOUNTER 2023-04-03 21:28 | Emergency (ER) | payer OTHER, SELFPAY ==
[2023-04-03 21:30] VITALS: BP 109/70; PULSE 85; RESP 16; TEMP 36.8; O2SAT 97; BMI 26.5
[2023-04-03 21:56] LABS: Basophils # 0.1 K/mm3 (0-0.2); Basophils % 0.6 % (0.1-2.0); Eosinophils # 0.1 K/mm3 (0.0-0.4); Eosinophils % 0.6 % (0.1-12.0); Hematocrit 43.5 % (37.0-47.0); Hemoglobin 14.4 g/dL (12.2-16.2); Lymphocytes # 3.4 K/mm3 (0.7-4.5); Lymphocytes % 22.8 % (10-50); Mean Corpuscular HGB Conc 33.2 g/dL (31.8-35.4); Mean Corpuscular Volume 93.6 fl (81-99); Mean Platelet Volume 7.3 fl (7.4-10.4); Monocytes % 6.3 % (1.7-9.3); Neutrophils # 10.4 K/mm3 (1.8-7.8); Neutrophils % 69.6 % (37.0-80.0); Platelet Count 363 K/mm3 (142-424); Red Blood Count 4.64 M/mm3 (4.20-5.40); Red Cell Distribution Width 13.4 % (11.5-17.5)
[2023-04-03 21:57] LABS: Chloride 106 mmol/L (98-107); Sodium 137 mmol/L (136-145)
[2023-04-03 21:59] LABS: Alanine Aminotransferase 26 U/L (12-78); Aspartate Amino Transferase 25 U/L (14-36); Blood Urea Nitrogen 13 mg/dl (7-17); Creatinine Clearance Estimated 122 mL/min (50-200); Estimated Glomerular Filt Rate 108 ml/min (>60); GFR (African American) 130 ML/MIN (>60); MANUAL DIFFERENTIAL MANUAL DIFFERENTIAL (MANUAL DIFF)
[2023-04-03 22:00] LABS: Albumin Level 4.3 g/dl (3.5-5.0); Albumin/Globulin Ratio 1.3 (1.1-1.8); Alkaline Phosphatase 99 U/L (38-126); Bilirubin,Total 0.8 mg/dl (0.2-1.3); Calcium 8.7 mg/dl (8.4-10.2); Carbon Dioxide 26 mmol/L (22.0-30.0); Globulin 3.4 g/dL (1.3-3.2); Glucose 114 mg/dl (74-100); Total Protein,Serum 7.7 g/dl (6.3-8.2)
[2023-04-03 22:07] LABS: Coronavirus 19, PCR Not Detected (NotDetected); Influenza A, PCR Not Detected (NotDetected); Influenza B, PCR Not Detected (NotDetected)
[2023-04-03 22:16] LABS: Lymphocytes % 10 % (10-50); Monocytes % 7 % (2-9); Neutrophils % 78 % (42-76); Platelet Estimate Normal; RBC Morphology Normal; Total Cells Counted 100
--- NOTE | 2023-04-03 22:23 | ED_ITS ---
Discharge Plan Disposition Patient Disposition: Home, Self-Care Prescriptions Prescriptions: New promethazine 25 mg tablet 25 mg PO Q6H PRN (Reason: nausea and vomiting) Qty: 20 0RF No Action prednisone 10 mg tablet 10 mg PO BID 4 Days Qty: 8 0RF amoxicillin [amoxicillin] 875 mg tablet 875 mg PO Q12H Qty: 20 0RF Referrals Follow up/Referrals: Matthew Boateng DO [Primary Care Provider] - See instructions Activity Restrictions/Add. Instructions Additional Instructions/Restrictions: Please follow-up with your primary care provider. Please return to the emergency department if you develop any new or worsening symptoms or become concerned for your health. Please take phenergan as needed for nausea and vomiting. Clinical Impressions Clinical Impression: Nausea vomiting and diarrhea Instructions Patient Instructions: DI for Diarrhea and Traveler's Diarrhea -- Adult, DI for Diarrhea and Traveler's Diarrhea -- Child, DI for Nausea -- Adult, DI for Nausea -- Child Discharge ED Provider: Daryl Gaitan General Adult HPI <Daryl Gaitan MD - Last Filed: 04/03/23 22:25> General Chief complaint: Nausea/Vomiting/Diarrhea Stated complaint: headache,vomiting,fever Time Seen by Provider: 04/03/23 22:15 Mode of Arrival: Ambulatory Source of Information: Patient Limitations: No Limitations Description of Symptoms (Recalled from ER Triage Doc. by RN): pt reports she had a headache and n/v/d since 2 pm today, went home from work, laid down for a nap, woke up with fever of 102, tylenol at 1900 History of Present Illness HPI narrative: Patient is a 47-year-old female previously healthy no significant past medical history presenting today with nausea vomiting and diarrhea just today. No symptoms yesterday. No respiratory symptoms. Patient denies any significant abdominal pain. Related Data Previous Rx's Medication Instructions Recorded amoxicillin 875 mg tablet 875 mg PO Q12H #20 tabs 10/16/22 prednisone 10 mg tablet 10 mg PO BID 4 days #8 tabs 10/16/22 promethazine 25 mg tablet 25 mg PO Q6H PRN nausea and 04/03/23 vomiting #20 tabs Allergies Allergy/AdvReac Type Severity Reaction Status Date / Time No Known Allergies Allergy Verified 10/31/21 09:27 [facility] <Daryl Gaitan MD - Last Filed: 04/03/23 22:25> [facility] Disclaimer: The information contained in this section may have been updated after the p atient was seen, as this information can be updated by other users. Social History Smoking Status: Never smoker second hand exposure: Yes alcohol intake: never current occupational status: other Travel in the last 8 weeks: None housing: house <Daryl Gaitan MD - Last Filed: 04/03/23 22:25> ROS Obtained: Yes All systems reviewed & no additional complaints except as documented Physical Exam <Daryl Gaitan MD - Last Filed: 04/03/23 22:25> General General appearance: alert and in no apparent distress Respiratory Respiratory exam: Present normal lung sounds bilaterally and respiratory distress Cardiovascular Cardiovascular exam: Present normal rhythm and tachycardia Abdominal Exam Abdominal exam: Present soft; Absent distention or tenderness Neurological Exam Neurological exam: Present alert and oriented X3 Medical Decision Making <Daryl Gaitan MD - Last Filed: 04/03/23 22:25> Tavo Inquiry Pt receiving controlled substance: No Vital Signs: 04/03/23 21:30 Temperature 98.2 F Temperature Source Oral Pulse Rate [Right] 85 Respiratory Rate 16 Blood Pressure [Right Arm] 109/70 L Blood Pressure Mean [Right Arm] 83 Blood Pressure Source [Right Arm] Automatic Cuff Blood Pressure Position [Right Arm] Sitting 02 Sat by Pulse Oximetry 97 Oxygen Delivery Method Room Air Lab Data Lab results reviewed: Yes I reviewed the patient's lab results. Lab Results 04/03/23 21:45: WBC 15.0 H, RBC 4.64, Hgb 14.4, Hct 43.5, MCV 93.6, MCH 31.0, MCHC 33.2, RDW 13.4, Plt Count 363, MPV 7.3 L, Neut % (Auto) 69.6, Lymph % (Auto) 22.8, [place] % (Auto) 6.3, Eos % (Auto) 0.6, Baso % (Auto) 0.6, Neut # (Auto) 10.4 H, Lymph # (Auto) 3.4, [place] # (Auto) 1.0, Eos # (Auto) 0.1, Baso # (Auto) 0.1, Total Counted 100, Neutrophils % (Manual) 78 H, Lymphocytes % (Manual) 10, Atypical Lymphs % 5.0, Monocytes % (Manual) 7, Platelet Estimate Normal, RBC Morphology Normal, Sodium 137, Potassium 4.0, Chloride 106, Carbon Dioxide 26, Anion Gap 9.0, BUN 13, Creatinine 0.60, Estimated Creat Clear 122, Estimated GFR 108, Est GFR ( Amer) 130, Glucose 114 H, Calcium 8.7, Total Bilirubin 0.8, AST 25, ALT 26, Alkaline Phosphatase 99, Total Protein 7.7, Alb umin 4.3, Globulin 3.4 H, Albumin/Globulin Ratio 1.3, SARS-CoV-2 (PCR) Not de tected, Influenza A Untype (PCR) Not detected, Influenza Type B (PCR) Not detected 04/03/23 21:45 04/03/23 21:45 Orders (Tests/Meds): ED MEDICATIONS Generic Name Dose Route Start Last Admin Trade Name Freq PRN Reason Stop Dose Admin Lactated Ringer's 1,000 mls @ 999 mls/hr 04/03/23 22:30 04/03/23 22:33 Lactated Ringer's 1000 Ml Bag IV 04/03/23 23:30 999 mls/hr .Q1H1M GIOVANA Administration Discontinued Medications Generic Name Dose Route Start Last Admin Trade Name Freq PRN Reason Stop Dose Admin Ondansetron HCl 4 mg 04/03/23 22:22 04/03/23 22:33 Ondansetron 4mg/2ml Vial IV 04/03/23 22:23 4 mg ONCE ONE Administration ORDERS Category Date Time Status Complete Blood Count Auto Diff Stat Lab 04/03/23 21:45 Completed Comprehensive Metabolic Panel Stat Lab 04/03/23 21:45 Completed Rapid PCR Covid and Flu A/B Stat Lab 04/03/23 21:45 Completed Medical Decision Narrative: Patient is a 47-year-old female presents today afebrile with nausea vomiting and diarrhea. This is most likely a viral syndrome. She is young healthy without any significant comorbidities is not a candidate for antiviral therapy if she is positive for the flu or COVID. She has benign abdominal exam this is not consistent with surgical pathology. Will check electrolytes give IV fluids antiemetics and reassess. Care will be transitioned to Dr. Marky Eugene at 11 PM. <Marky Eugene MD - Last Filed: 04/03/23 23:17> Vital Signs: 04/03/23 21:30 Temperature 98.2 F Temperature Source Oral Pulse Rate [Right] 85 Respiratory Rate 16 Blood Pressure [Right Arm] 109/70 L Blood Pressure Mean [Right Arm] 83 Blood Pressure Source [Right Arm] Automatic Cuff Blood Pressure Position [Right Arm] Sitting 02 Sat by Pulse Oximetry 97 Oxygen Delivery Method Room Air Lab Data Lab Results 04/03/23 21:45: WBC 15.0 H, RBC 4.64, Hgb 14.4, Hct 43.5, MCV 93.6, MCH 31.0, MCHC 33.2, RDW 13.4, Plt Count 363, MPV 7.3 L, Neut % (Auto) 69.6, Lymph % (Auto) 22.8, [place] % (Auto) 6.3, Eos % (Auto) 0.6, Baso % (Auto) 0.6, Neut # (Auto) 10.4 H, Lymph # (Auto) 3.4, [place] # (Auto) 1.0, Eos # (Auto) 0.1, Baso # (Auto) 0.1, Total Counted 100, Neutrophils % (Manual) 78 H, Lymphocytes % (Manual) 10, Atypical Lymphs % 5.0, Monocytes % (Manual) 7, Platelet Estimate Normal, RBC Morphology Normal, Sodium 137, Potassium 4.0, Chloride 106, Carbon Dioxide 26, Anion Gap 9.0, BUN 13, Creatinine 0.60, Estimated Creat Clear 122, Estimated GFR 108, Est GFR ( Amer) 130, Glucose 114 H, Calcium 8.7, Total Bilirubin 0.8, AST 25, ALT 26, Alkaline Phosphatase 99, Total Protein 7.7, Albumin 4.3, Globulin 3.4 H, Albumin/Globulin Ratio 1.3, SARS-CoV-2 (PCR) Not detected, Influenza A Untype (PCR) Not detected, Influenza Type B (PCR) Not detected Orders (Tests/Meds): ED MEDICATIONS Generic Name Dose Route Start Last Admin Trade Name Freq PRN Reason Stop Dose Admin Lactated Ringer's 1,000 mls @ 999 mls/hr 04/03/23 22:30 04/03/23 22:33 Lactated Ringer's 1000 Ml Bag IV 04/03/23 23:30 999 mls/hr .Q1H1M GIOVANA Administration Discontinued Medications Generic Name Dose Route Start Last Admin Trade Name Adi PRN Reason Stop Dose Admin Ondansetron HCl 4 mg 04/03/23 22:22 04/03/23 22:33 Ondansetron 4mg/2ml Vial IV 04/03/23 22:23 4 mg ONCE ONE Administration ORDERS Category Date Time Status Complete Blood Count Auto Diff Stat Lab 04/03/23 21:45 Completed Comprehensive Metabolic Panel Stat Lab 04/03/23 21:45 Completed Rapid PCR Covid and Flu A/B Stat Lab 04/03/23 21:45 Completed Medical Decision Narrative: Patient is a 47-year-old female presents today afebrile with nausea vomiting and diarrhea. This is most likely a viral syndrome. She is young healthy without any significant comorbidities is not a candidate for antiviral therapy if she is positive for the flu or COVID. She has benign abdominal exam this is not consistent with surgical pathology. Will check electrolytes give IV fluids antiemetics and reassess. Care will be transitioned to Dr. Marky Eugene at 11 PM. Jabier GOINS: I assumed care of the patient at the time of handoff from the prior provider. On reassessment patient reports symptomatic improvement. She is tolerating p.o. Stable vitals. Patient discharged with prescription for Phenergan for nausea and vomiting. Critical Care <Daryl Gaitan MD - Last Filed: 04/03/23 22:25> Critical Care Time Critical Care Time: No
[2023-04-03] MEDS: LACTATED RINGERS 1000ML 1,000 ML 999 ML IV (22:33)
[2023-04-03] MEDS: ONDANSETRON 4MG/2ML VIAL 4 MG IV (22:33)
--- NOTE | 2023-04-03 23:09 | PC.NURSE ---
pt drinking water without vomiting. states i just want to go home and go to sleep aware
[2023-04-03 23:32] VITALS: BP 109/72; PULSE 73; RESP 16; TEMP 36.6; O2SAT 99
== END 2023-04-03 23:33 | disposition home or self-care (01) ==
PROVIDERS: Emergency Provider Student in an Organized Health Care Education/Training Program; PCP Internal Medicine
DX: R51.9 Headache, unspecified (principal); R11.2 Nausea with vomiting, unspecified; R19.7 Diarrhea, unspecified
CPT/HCPCS: 80053; 85007; 85025; 87636; 96361; 96374; 99284; J2405

== ENCOUNTER 2023-11-04 11:41 | Emergency (ER) | payer SELFPAY ==
[2023-11-04 11:50] VITALS: BP 122/71; PULSE 69; RESP 20; TEMP 36.6; O2SAT 98; BMI 27.3
--- NOTE | 2023-11-04 12:09 | ED_ITS ---
Discharge Plan Disposition Patient Disposition: Home, Self-Care Condition: Good Prescriptions Prescriptions: New pseudoephedrine HCl [Sudafed 12 Hour] 120 mg tablet extended release 120 mg PO Q12H PRN (Reason: nasal congestion) Qty: 20 0RF amoxicillin-pot clavulanate 875-125 mg Tablet 1 tab PO Q12H 7 Days Qty: 14 0RF Referrals Follow up/Referrals: Provider,Referral, MD [Primary Care Provider] - See instructions Activity Restrictions/Add. Instructions Additional Instructions/Restrictions: *Monitor Temp, Over the counter Motrin or Tylenol as directed/as needed Tylenol every 4 hours and Motrin every 6 hours (as long as your family doctor has told you that you can take it) for fever or pain. and straight to ER if unable to lower temp less than 101.0 after medication given *Warm salt water gargles may help to soothe the throat *Throat Lozenges? *Warm fluids like tea with honey may help to soothe the throat? *Sleep elevated *Humidifier/Vaporizer Follow up IMMEDIATELY for new or worsening symptoms or no Noticeable improvement over the next 48-72 hours. 911 for difficulty breathing or swallowing Clinical Impressions Clinical Impression: Sinusitis Instructions Patient Instructions: DI for Sinusitis, Sinusitis Print Language Print Language: Nauruan Discharge ED Provider: Samanta Spencer [facility] [place] HPI General Stated complaint: cough, congestion, sore throat Mode of Arrival: Ambulatory Source of Information: Patient Limitations: No Limitations Time Seen by Provider: 11/04/23 12:09 Description of Symptoms (Recalled from Triage Doc. by RN): PATIENT C/O SORE THROAT, COUGH, EAR PAIN AND HEAD CONGESTION X 4 DAYS HEENT Symptoms (Recalled from RN notes): Yes Resp Symptoms (Recalled from RN notes): Yes Skin Symptoms (Recalled from RN notes): No MS Symptoms (Recalled from RN notes): No Functional Status (Recalled from RN notes): WNL History of Present Illness Provider Complaint: Patient states that she has been having sore throat, sinus congestion and pressure and pain and pressure in both ears States that she feels like she may have a sinus infection so she came in to get checked Related Data Previous Rx's ?Medication ?Instructions ?Recorded amoxicillin 875 mg-potassium 1 tab PO Q12H 7 days #14 tabs 11/04/23 clavulanate 125 mg tablet pseudoephedrine HCl 120 mg 120 mg PO Q12H PRN nasal 11/04/23 tablet,extended release (Sudafed congestion #20 tabs 12 Hour) Allergies Allergy/AdvReac Type Severity Reaction Status Date / Time No Known Allergies Allergy Verified 10/31/21 09:27 Worker's Comp Is this a Worker's Comp case?: No PFSH [facility] Disclaimer: The information contained in this section may have been updated after the patient was seen, as this information can be updated by other users. Medical History (Updated 11/04/23 @ 12:14 by Samanta Spencer APRN) GERD (gastroesophageal reflux disease) Depression Anxiety Social History Smoking Status: Never smoker second hand exposure: Yes alcohol intake: never current occupational status: other Travel in the last 8 weeks: None housing: house ROS Obtained: Yes All systems reviewed & no additional complaints except as documented and Yes Systems reviewed as appropriate & no additional complaints except as documented Constitutional Constitutional: Reports system reviewed and no additional complaints, except as documented and Reports as per HPI ENT Ears, Nose, Mouth, and Throat: Reports system reviewed and no additional complaints, except as documented, Reports as per HPI, Reports otalgia, Reports nasal congestion, Reports sinus pressure and Reports sore throat Cardiovascular Cardiovascular: Reports system reviewed and no additional complaints, except as documented and Reports as per HPI Respiratory Respiratory: Reports system reviewed and no additional complaints, except as documented and Reports as per HPI Gastrointestinal Gastrointestingal: Reports system reviewed and no additional complaints, except as documented and as per HPI Physical Exam General General appearance: alert and in no apparent distress ENT ENT exam: Present mucous membranes moist Expanded ENT Exam TM/Canal exam: Bilateral TM: bulging Nose exam: Present sinus tenderness Throat exam: Present other (Pharyngeal erythema noted with PND) Respiratory Respiratory exam: Present normal lung sounds bilaterally; Absent respiratory distress or wheezes Cardiovascular Cardiovascular exam: Present regular rate, normal rhythm and normal heart sounds Neurological Exam Neurological exam: Present alert, oriented X3 and normal gait Medical Decision Making Tavo Inquiry Pt receiving controlled substance: No Tavo was queried for this patient: No Vital Signs: 11/04/23 11:50 Temperature 97.8 F Temperature Source Oral Pulse Rate [Left Brachial] 69 Respiratory Rate 20 Blood Pressure [Left Arm] 122/71 Blood Pressure Mean [Left Arm] 88 Blood Pressure Source [Left Arm] Automatic Cuff Blood Pressure Position [Left Arm] Sitting 02 Sat by Pulse Oximetry 98 Oxygen Delivery Method Room Air
[2023-11-04 12:18] VITALS: BP 122/71; PULSE 69; RESP 20; TEMP 36.6; O2SAT 98
== END 2023-11-04 12:28 | disposition home or self-care (01) ==
PROVIDERS: Emergency Provider Nurse Practitioner
DX: J01.90 Acute sinusitis, unspecified (principal); R07.0 Pain in throat; R05.9 Cough, unspecified; H92.03 Otalgia, bilateral
CPT/HCPCS: 99212; 99214; G0463